=== PATIENT | male | born 1965 | race Caucasian/White ===

== ENCOUNTER → 2023-08-08 08:15 | Outpatient (REF) | payer BC, SELFPAY | LOC: MRI 3T 08:15 | PROVIDERS: ATTENDING PHYSICIAN Specialist; FAMILY PHYSICIAN Internal Medicine | DX: R97.20 Elevated prostate specific antigen [PSA] (principal) | CPT/HCPCS: 72197; A9575 ==

== ENCOUNTER → 2023-09-07 13:01 | Outpatient (REF) | payer BC, SELFPAY | LOC: PET 13:01 | PROVIDERS: ATTENDING PHYSICIAN Specialist | DX: C61 Malignant neoplasm of prostate (principal) | CPT/HCPCS: 78815 ==

== ENCOUNTER 2024-12-13 18:13 | Emergency (ER) | payer SELFPAY ==
[2024-12-13 18:30] VITALS: BP 139/87
--- NOTE | 2024-12-13 20:30 | ED.GENMED ---
History of Present Illness
General
Chief Complaint: Fall
Time Seen by Provider: 12/13/24 19:59
History of Present Illness
History of Present Illness:
59-year-old male presents to the emergency department for evaluation of left anterior chest pain as well as left arm paresthesias after falling while working today. States he slipped on a ramp and landed on a large rock directly onto an adducted
right arm. He is predominately complaining of chest pain just inferior to the left nipple but also reports paresthesia of the left arm. Denies neck pain or head strike. Does not take blood thinners.
Past History
Past History
ED Past Medical History: HTN, Hypercholesterolemia and NIDDM
ED Past Surgical History: Cardiac (Stent X1) and Other (neck sx )
Social History
Tobacco: Smoker
Alcohol: Occasional
Personal: Single
Living: alone
Review of Systems
Review of Systems
Allergies reviewed?: Yes
All Other Systems: ROS reviewed and negative except as documented in HPI and ROS
Phy Exam
Physical Exam
Physical Exam:
GEN: Well appearing, NAD, WDWN
HEENT: Oral mucosa moist, no scleral icterus
Cardiac: Regular rate and rhythm, no murmurs
Lung: No respiratory distress, no tachypnea, lungs clear to auscultation bilaterally
Chest: Swelling to the left anterior chest wall inferior to the nipple with gross deformity, moderately tender to palpation, no ecchymosis or crepitus
MSK: No gross deformity or injuries. No midline cervical spine tenderness. Normal cervical range of motion bilaterally
Skin: Good color, no pallor or jaundice, no rashes
Neuro: AO x3, moves all extremities freely
Psych: Calm, cooperative
Course
Orders/Labs/Results
Orders:
Orders
12/13/24 18:33
Ribs, Left 3 View W/PA Chest CR [CR Ribs-left 3 Vw W/pa Chest] Urgent
Comment:
Reason For Exam: fall with pain
12/13/24 20:31
Ketorolac [Toradol] 30 mg IM NOW STA
Vital Signs
Initial and Last Documented VS:
Initial Vital Signs
Temp Pulse Resp BP Pulse Ox
98.1 F 89 18 139/87 97
12/13/24 18:30 12/13/24 18:30 12/13/24 18:30 12/13/24 18:30 12/13/24 18:30
Last Documented Vital Signs
Temp Pulse Resp BP Pulse Ox
98.1 F 86 18 136/83 99
12/13/24 18:30 12/13/24 20:50 12/13/24 20:50 12/13/24 20:50 12/13/24 20:50
MDM/Problems Addressed
MDM/Problems Addressed:
Imaging is unremarkable for fracture. In regards to his left arm paresthesias he has no neck range of motion left shoulder and left elbow range of motion with no signs of deformity suggest fracture. This may be brachial neuritis due to blunt injury
*Pulse Oximetry
SaO2: 97
Oxygen Mode of Delivery: Room air
Patient hypoxic: no
*Critical Care Note
Total Time (30-74mins, 75-104mins- exclusive of procedures): Not Applicable
ED Attending Note
-
Portions of this chart may have been created with voice recognition software.� Occasional wrong word or��sound alike� substitutions may have occurred due to the inherent limitations of voice recognition software.
Discharge Plan
Departure
Patient Disposition: Home (Routine Discharge)
Date of Disposition: 12/13/24
Time of Disposition: 20:31
Patient with high blood pressure during this ER visit?: No
Discharge Problem:
Contusion of left chest wall, Arm paresthesia, left
Instructions: Rib fracture or bruised rib - ED (DC)
Prescriptions:
No Action
aspirin 81 MG tablet,delayed release (DR/EC)
81 mg PO DAILY
alprazolam 0.5 MG tablet
0.5 mg PO Q6HPRN PRN (Reason: anxiety)
amlodipine 10 MG tablet
10 mg PO DAILY
pioglitazone 30 MG tablet
30 mg PO DAILY
irbesartan 300 MG tablet
300 mg PO DAILY
tadalafil [Cialis] 5 MG tablet
5 mg PO DAILYPRN PRN (Reason: erectile dysfunction)
nitroglycerin 0.4 MG tablet, sublingual
0.4 mg sublingual [id number] PRN (Reason: chest pain) Qty: 25 3RF
metoprolol succinate 25 MG tablet extended release 24 hr
25 mg PO DAILY
coenzyme [id number] E [Co Q-10 (with Vit E)] 1 EACH capsule
1 ea PO DAILY
rosuvastatin 5 MG tablet
5 mg PO DAILY
Interventions
Interventions:
*Risk Screen - Suicide Last Done: 12/13/24 18:30
*General Assessment Last Done: 12/13/24 18:30
*Neglect/Abuse Screening Last Done: 12/13/24 18:30
*Nursing Disposition Last Done: 12/13/24 20:57
ED-Musculoskeletal Assessment Last Done: 12/13/24 20:49
ED- Neurological Assessment Last Done: 12/13/24 20:49
ED-Skin Assessment Last Done: 12/13/24 20:49
Discharge Date and Time
Discharge Date/Time: 12/13/24 20:58
Print Language: CROATIAN
[2024-12-13 20:50] VITALS: BP 136/83
[2024-12-13] MEDS: TORADOL 30 MG IM (20:52)
== END 2024-12-13 20:58 | disposition home or self-care (01) ==
LOC: EMR 18:13
PROVIDERS: EMERGENCY PHYSICIAN Emergency Medicine; FAMILY PHYSICIAN Internal Medicine
DX: S20.212A Contusion of left front wall of thorax, initial encounter (principal); R20.2 Paresthesia of skin; E11.9 Type 2 diabetes mellitus without complications; I10 Essential (primary) hypertension; E78.00 Pure hypercholesterolemia, unspecified; F17.200 Nicotine dependence, unspecified, uncomplicated; Z79.84 Long term (current) use of oral hypoglycemic drugs; Z79.82 Long term (current) use of aspirin; Z95.5 Presence of coronary angioplasty implant and graft; W01.198A Fall on same level from slipping, tripping and stumbling with subsequent striking against other object, initial encounter; Y93.01 Activity, walking, marching and hiking; Y99.0 Civilian activity done for income or pay
CPT/HCPCS: 99284; 96372; 71101